=== PATIENT | male | born 1990 | race Hispanic/Latino ===

== ENCOUNTER 2023-10-20 16:27 | Emergency (ER) | payer OTHER ==
[~2023-10-20] VITALS: Ht 180.3 cm; Wt 81.8 kg
[2023-10-20 16:38] VITALS: BP 114/67
[2023-10-20] MEDS ORDERED: ORPHENADRINE CITRATE 30 MG/ML AMP IM ONE (16:40)
[2023-10-20] MEDS ORDERED: oxyCODONE 5MG/ ACETAMINOPHEN 325MG TAB PO ONE (16:40)
[2023-10-20] MEDS ORDERED: KETOROLAC TROMETHAMINE 30 MG/ML SDV IM ONE (16:40)
[2023-10-20 16:46] VITALS: BP 128/86
[2023-10-20 17:01] VITALS: BP 106/59
[2023-10-20 17:31] VITALS: BP 126/72
[2023-10-20] MEDS ORDERED: METHOCARBAMOL500 MG PO (17:57)
[2023-10-20] MEDS ORDERED: PERCOCET1 TA4 PO (17:57)
[2023-10-20] MEDS ORDERED: NAPROXEN500 MG PO (17:57)
[2023-10-20 18:07] VITALS: BP 126/72
== END 2023-10-20 18:15 | disposition home or self-care (01) | DRG 563 ==
LOC: ED 16:27
PROC: 2W3AX1Z Immobilization of Right Upper Arm using Splint (ICD-10-PCS; principal; 2023-10-20)
DX: S42.341A Displaced spiral fracture of shaft of humerus, right arm, initial encounter for closed fracture (principal); X50.0XXA Overexertion from strenuous movement or load, initial encounter; Y93.89 Activity, other specified